=== PATIENT | female | born 1995 | race American Indian/Alaskan Native ===

== ENCOUNTER 2020-06-06 13:15 | Emergency (ER) | payer OTHER, BC ==
[2020-06-06 13:27] VITALS: BP 113/66
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
== END 2020-06-06 17:00 | disposition home or self-care (01) ==
LOC: ED 13:15
DX: S80.01XA Contusion of right knee, initial encounter (principal); M54.6 Pain in thoracic spine; Z79.899 Other long term (current) drug therapy; V49.49XA Driver injured in collision with other motor vehicles in traffic accident, initial encounter; Y93.89 Activity, other specified; Y92.410 Unspecified street and highway as the place of occurrence of the external cause; Y99.8 Other external cause status
CPT/HCPCS: 72040; 72100